=== PATIENT | male | born 1990 | race African-American/Black ===

== ENCOUNTER 2023-05-01 19:01 | Emergency (ER) | payer OTHER, SELFPAY ==
[2023-05-01] VITALS (8 sets, daily range): BP systolic 122–154; BP diastolic 70–95; PULSE 79–102; RESP 17–26; TEMP 36.9; O2SAT 97–100
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
== END 2023-05-01 22:59 | disposition home or self-care (01) ==
LOC: ANHED 21:50
PROVIDERS: Emergency Provider Emergency Medicine
DX: S00.12XA Contusion of left eyelid and periocular area, initial encounter (principal); S29.9XXA Unspecified injury of thorax, initial encounter; V44.5XXA Car driver injured in collision with heavy transport vehicle or bus in traffic accident, initial encounter
CPT/HCPCS: 70450; 71250; 72125; 74150; 99284